=== PATIENT | male | born 1975 | race Caucasian/White ===

== ENCOUNTER 2023-04-06 21:46 | Emergency (ER) | payer OTHER, BC ==
[2023-04-06 21:54] VITALS: BP 128/74; PULSE 91; RESP 18; TEMP 98.2
--- NOTE | 2023-04-06 22:10 | XR ---
EXAMINATION TYPE: XR chest 2V DATE OF EXAM: 04/06/2023 COMPARISON: NONE HISTORY: Fall, rib pain TECHNIQUE: Frontal and lateral views of the chest are obtained. FINDINGS: There is no focal air space opacity, pleural effusion, or pneumothorax seen. The cardiac silhouette size is within normal limits. The osseous structures are intact. IMPRESSION: No acute cardiopulmonary process.
[2023-04-06] MEDS ORDERED: LIDOCAINE 5% PATCH TOPICAL STA (23:01)
[2023-04-06] MEDS ORDERED: IBUPROFEN 800 MG TAB PO STA (23:01)
[2023-04-06] MEDS ORDERED: ACET/COD 300 MG/30 MG STARTER PACK 6 TAB BTL PO STA (23:05)
--- NOTE | 2023-04-06 23:05 | ED ---
General Adult HPI - General Chief complaint: Fall Stated complaint: [facility] - Left Ribs Injury Time Seen by Provider: 04/06/23 22:35 Source: patient, RN notes reviewed, old records reviewed Mode of arrival: ambulatory Limitations: no limitations - History of Present Illness Initial comments: Patient is a 48-year-old male presents for evaluation after tripping and falling into a machine at work. Did not hit his head. Did not lose consciousness. He is not on blood thinners. Has a history of diabetes. Fall occurred earlier today. He is having left-sided rib pain and is concerned he may have a fracture or contusion. Presents for further evaluation at this time. Pain worse with deep inspiration. Pain does not radiate. No nausea or vomiting or abdominal pain. No other acute complaints at this time. Presents for further evaluation. - Related Data Home Medications Medication Instructions Recorded Confirmed FLUoxetine HCL [PROzac] 20 mg PO HS 05/14/17 05/14/17 Insulin Aspart (For Pump) [NovoLOG See Protocol SQ-PUMP CONTINUOUS 05/14/17 05/14/17 (For Pump)] Previous Rx's Medication Instructions Recorded Sulfamethox-Tmp 800-160Mg [Bactrim 2 each PO Q12HR #56 tab 05/14/17 DS 800-160 mg] Cyclobenzaprine [Flexeril] 5 mg PO BID PRN 7 Days #14 tablet 04/06/23 Lidocaine 5% Patch [Lidoderm 5% 1 patch TOPICAL DAILY PRN 14 Days 04/06/23 Patch] #14 patch Allergies Allergy/AdvReac Type Severity Reaction Status Date / Time No Known Allergies Allergy Verified 04/06/23 21:50 Review of Systems ROS Statement: Those systems with pertinent positive or pertinent negative responses have been documented in the HPI. Review of Systems: CONST: Denies fever EYES: Denies blurry vision ENT: Denies nasal congestion C/V: Endorses left-sided rib pain RESP: Denies shortness of breath GI: Denies abdominal pain : Denies dysuria SKIN: Denies rash. MSK: Denies joint pain. NEURO: Denies headache ROS Other: All systems not noted in ROS Statement are negative. Past Medical History Past Medical History: Diabetes Mellitus History of Any Multi-Drug Resistant Organisms: None Reported Past Surgical History: Appendectomy, Orthopedic Surgery Additional Past Surgical History / Comment(s): r shoulder r knee scope Past Psychological History: No Psychological Hx Reported Smoking Status: Former smoker Past Alcohol Use History: None Reported Past Drug Use History: None Reported General Exam - General Exam Comments Initial Comments: General: Appears in mild distress secondary to pain. HEAD: Normal with no signs of head trauma. EYES: PERRLA, EOMI, conjunctiva normal, no discharge. ENT: Hearing grossly intact, normal oropharynx. Trachea is midline. RESPIRATORY: Clear breath sounds bilaterally. No wheezes, rales, or rhonchi. No evidence of flail chest. C/V: Regular rate and rhythm. S1 and S2 auscultated, peripheral pulses 2+ and intact throughout ABD: Abd is soft, nontender, nondistended EXT: Normal range of motion, no obvious deformity. Patient does have tenderness palpation over the anterior inferior chest wall over the inferior ribs. No evidence of flail chest. SKIN: No rashes or lesions observed on exposed skin. NEURO: Alert and oriented 4. No focal deficits. GCS of 15. Limitations: no limitations Course Vital Signs 04/06/23 21:50 Temperature 98.2 F Pulse Rate 91 Respiratory 18 Rate Blood Pressure 128/74 O2 Sat by Pulse 98 Oximetry Medical Decision Making - Medical Decision Making Was pt. sent in by a medical professional or institution (, PA, [employer], urgent care, hospital, or group home...) When possible be specific @ -No Did you speak to anyone other than the patient for history (EMS, parent, family, police, friend...)? What history was obtained from this source @ -No Did you review nursing and triage notes (agree or disagree)? Why? @ -I reviewed and agree with nursing and triage notes Were old charts reviewed (outside hosp., previous admission, EMS record, old EKG, old radiological studies, urgent care reports/EKG's, group home records)? Report findings @ -No old charts were reviewed Differential Diagnosis (chest pain, altered mental status, abdominal pain women, abdominal pain men, vaginal bleeding, weakness, fever, dyspnea, syncope, headache, dizziness, GI bleed, back pain, seizure, CVA, palpatations, mental health, musculoskeletal)? @ -Rib contusion, pneumothorax, flail chest, rib fracture. This list is not all inclusive. EKG interpreted by me (3pts min.). @ -None done X-rays interpreted by me (1pt min.). @ -Chest x-ray reveals no evidence of obvious cardiopulmonary process, rib fracture. No pneumothorax. CT interpreted by me (1pt min.). @ -None done U/S interpreted by me (1pt. min.). @ -None done What testing was considered but not performed or refused? (CT, X-rays, U/S, la bs)? Why? @ -None What meds were considered but not given or refused? Why? @ -None Did you discuss the management of the patient with other professionals (professionals i.e. , PA, [employer], lab, RT, psych nurse, medical social worker, biomass plant manager, teacher, county health officer, case monitor)? Give summary @ -No Was smoking cessation discussed for >3mins.? @ -No Was critical care preformed (if so, how long)? @ -No Were there social determinants of health that impacted care today? How? (Homelessness, low income, unemployed, alcoholism, drug addiction, transportation, low edu. Level, literacy, decrease access to med. care, longterm, rehab)? @ -No Was there de-escalation of care discussed even if they declined (Discuss DNR or withdrawal of care, Hospice)? DNR status @ -No What co-morbidities impacted this encounter? (DM, HTN, Smoking, COPD, CAD, Cancer, CVA, ARF, Chemo, Hep., AIDS, mental health diagnosis, sleep apnea, morbid obesity)? @ -None Was patient admitted / discharged? Hospital course, mention meds given and route, prescriptions, significant lab abnormalities, going to OR and other pertinent info. @ -Based on the patient's presentation and physical exam, I'm concerned for rib contusion or rib fracture on the left. I evaluated patient after he was placed in a room. Chest x-ray had already been completed. I discussed the results with him and he expressed understanding. He is in agreement and likely has rib contusion. We will provide him with a lidocaine patch, Motrin. Patient will also be given an incentive spirometer. Strict return precautions were discussed. Patient was in agreement this plan. He will also be given a starter pack of Tylenol 3's. I will provide the patient with a prescription for lidocaine patch, Flexeril. I instructed the patient to follow up with their PCP in the next 1-3 days. I explained that the patient should return to the emergency department if they experience any worsening symptoms. Strict return precautions were discussed with the patient. The patient expressed understanding of these instructions. I answered all questions that the patient had. The patient was discharged home in good condition with their prescriptions and follow up information. Undiagnosed new problem with uncertain prognosis? @ -No Drug Therapy requiring intensive monitoring for toxicity (Heparin, Nitro, Insulin, Cardizem)? @ -No Were any procedures done? @ -No Diagnosis/symptom? @ -Fall, left-sided rib contusion Acute, or Chronic, or Acute on Chronic? @ -Acute Uncomplicated (without systemic symptoms) or Complicated (systemic symptoms)? @ -Uncomplicated Side effects of treatment? @ -No Exacerbation, Progression, or Severe Exacerbation? @ -No Poses a threat to life or bodily function? How? (Chest pain, [place], [place], pneumonia, PE, COPD, DKA, ARF, appy, cholecystitis, CVA, Diverticulitis, Homicidal, Suicidal, threat to staff... and all critical care pts) @ -No Disposition Clinical Impression: Fall, Contusion of rib on left side Disposition: HOME SELF-CARE Condition: Good Instructions (If sedation given, give patient instructions): How to Use an Incentive Spirometer (ED), Fall Prevention (ED), Rib Contusion (ED) Prescriptions: Cyclobenzaprine [Flexeril] 5 mg PO BID PRN 7 Days #14 tablet PRN Reason: Pain Lidocaine 5% Patch [Lidoderm 5% Patch] 1 patch TOPICAL DAILY PRN 14 Days #14 patch PRN Reason: Pain Is patient prescribed a controlled substance at d/c from ED?: Yes Referrals: Orlando Pimentel DO [Primary Care Provider] - 1-2 days Time of Disposition: 22:56
== END 2023-04-06 23:43 | disposition home or self-care (01) ==
LOC: EC 21:46
DX: S20.212A Contusion of left front wall of thorax, initial encounter (principal); E11.9 Type 2 diabetes mellitus without complications; Z87.891 Personal history of nicotine dependence; Z79.4 Long term (current) use of insulin; W01.0XXA Fall on same level from slipping, tripping and stumbling without subsequent striking against object, initial encounter; Y99.0 Civilian activity done for income or pay
CPT/HCPCS: 71046; 99284

== ENCOUNTER → 2023-05-04 | Outpatient (CLI) | payer OTHER ==
--- NOTE | 2023-05-04 10:42 | XR ---
EXAMINATION TYPE: XR chest 2V, XR ribs 4 views LT DATE OF EXAM: 05/04/2023 COMPARISON: 04/06/2023 HISTORY: 48-year-old male fall and left rib pain FINDINGS: Chest: The cardiomediastinal silhouette, aorta, and pulmonary vasculature are within normal limits. Lungs an d pleural spaces are clear. Left RIBS: There is some cortical irregularity at the anterior left seventh rib only seen on one image which cou ld represent some developing costochondral calcification. Otherwise, no displaced rib fracture is see n. IMPRESSION: 1. No acute cardiopulmonary process. 2. Questionable subtle nondisplaced fracture anterior left seventh rib. Only seen on one image. Corre late for any point tenderness here.
== END | disposition home or self-care (01) ==
LOC: RADXRMAIN 10:03
PROVIDERS: ATTEND Emergency Medicine
DX: S20.212A Contusion of left front wall of thorax, initial encounter (principal); X58.XXXA Exposure to other specified factors, initial encounter
CPT/HCPCS: 71046